=== PATIENT | male | born 1955 | race Caucasian/White ===

== ENCOUNTER 2021-01-30 09:45 | Outpatient (CLI) | payer MEDICARE, OTHER ==
--- NOTE | 2021-01-30 15:04 | XRAY Report ---
PROCEDURE: Knee Standing RT INDICATIONS: GANGLION CYST TECHNIQUE: 4 views of the right knee, and 1 view of the left knee. COMPARISON: None. FINDINGS: Bones: No acute fractures or dislocations. No suspicious bony lesions. There is minimal narrowing o f the medial femorotibial joint spaces bilaterally. Moderate narrowing of the anterior compartment is seen that is more prominent medially. Tiny compartmental marginal osteophytes are seen. Soft tissues: Small right knee joint effusions. No suspicious soft tissue calcification. IMPRESSION: No acute osseous abnormality. Moderate patellofemoral osteoarthrosis. Small right knee effusion. If s ymptoms persist with conservative management, further evaluation with MRI or CT may be obtained. Reviewed by: Ajay Garrido MD on 01/30/2021 3:02 PM PDT Approved by: Ajay Garrido MD on 01/30/2021 3:02 PM PDT Station ID: [id number]
--- NOTE | 2021-01-30 15:06 | XRAY Report ---
PROCEDURE: Femur 2V RT INDICATIONS: GANGLION CYST, RT LEG TECHNIQUE: 5 views of the femur were acquired. COMPARISON: None. FINDINGS: Bones: No acute fractures or dislocations. No suspicious bony lesions. Mild degenerative changes a re seen in the knee. Soft tissues: No suspicious soft tissue calcifications or masses. Small knee joint effusion. IMPRESSION: No acute osseous abnormality. If there is clinical concern or persistent symptoms, additional imaging such as repeat radiographs or advanced imaging (e.g. CT, MRI) may be helpful for further evaluation. Reviewed by: Ajay Garrido MD on 01/30/2021 3:05 PM PDT Approved by: Ajay Garrido MD on 01/30/2021 3:05 PM PDT Station ID: [id number]
== END 2021-01-30 23:59 | disposition home or self-care (01) ==
LOC: DI.N 09:45
PROVIDERS: ATTEND Physician Assistant
DX: M17.11 Unilateral primary osteoarthritis, right knee (principal); M25.461 Effusion, right knee

== ENCOUNTER 2021-02-26 17:17 | Outpatient (CLI) | payer MEDICARE ==
--- NOTE | 2021-02-26 10:22 | XRAY Report ---
PROCEDURE: Foot 3 View BILAT INDICATIONS: BUNION TECHNIQUE: 3 views of the bilateral feet were acquired. COMPARISON: None FINDINGS: Bones: No fractures or dislocations. No suspicious bony lesions. Severe joint space narrowing and periarticular osteophyte formation at the bilateral first metatarsophalangeal joints. Mild joint spac e narrowing in particular osteophyte formation at the tibiotalar, talonavicular, naviculocuneiform, a nd interphalangeal joints of the digits bilaterally. Soft tissues: No tibiotalar joint effusion. Achilles tendon appears normal. IMPRESSION: 1. Bilateral osteoarthritis, worst at the first metatarsophalangeal joints. 2. No acute fracture. No osseous lesion. If symptoms and/or clinical suspicion for pathology continue , further assessment with repeat plain films, or advanced imaging (e.g., CT, MRI, or bone scan) is re commended for further assessment. Reviewed by: Donal Ricardo MD on 02/26/2021 10:21 AM PDT Approved by: Donal Ricardo MD on 02/26/2021 10:21 AM PDT Station ID: [id number]
== END 2021-02-26 23:59 | disposition home or self-care (01) ==
LOC: DI.N 17:17
PROVIDERS: ATTEND Orthopaedic Surgery
DX: M19.072 Primary osteoarthritis, left ankle and foot (principal); M19.071 Primary osteoarthritis, right ankle and foot